=== PATIENT | female | born 1995 | race Caucasian/White ===

== ENCOUNTER 2018-10-07 11:25 | Inpatient (IN) | payer BC, OTHER ==
[2018-10-07 11:59] LABS: APPEARANCE,URINE CLEAR; BILIRUBIN,URINE NEGATIVE (NEGATIVE); COLOR,URINE STRAW; GLUCOSE, URINE NEGATIVE (NEGATIVE); KETONES,URINE NEGATIVE (NEGATIVE); LEUKOCYTE ESTERASE,URINE TRACE (NEGATIVE); NITRITE,URINE NEGATIVE (NEGATIVE); PROTEIN,URINE NEGATIVE (NEGATIVE); URINE SPECIFIC GRAVITY 1.005; UROBILINOGEN,URINE NEGATIVE mg/dL (<2.0)
[2018-10-07 12:16] LABS: URINE AMPHETAMINES SCREEN NEGATIVE; URINE BARBITURATES SCREEN NEGATIVE; URINE BENZODIAZEPINES SCREEN NEGATIVE; URINE COCAINE SCREEN NEGATIVE; URINE MARIJUANA (THC) SCREEN NEGATIVE; URINE METHADONE SCREEN NEGATIVE; URINE PHENCYCLIDINE SCREEN NEGATIVE
[2018-10-07] MEDS ORDERED: OXYTOCIN/NORMAL SALINE 20 UNIT/1,000 ML RTUINJ IV PRN (12:40)
--- NOTE | 2018-10-07 12:40 | Admission Physical ---
Datetime Report Generated by CPN: 10/07/2018 12:39 CURRENT ADMISSION Chief Complaint: Suspected Ruptured Membranes Indication for Induction: Not Applicable Admit Impression : No Active Labor; Ruptured Membranes Admit Plan: Initiate Labor Augmentation Protocol ALLERGIES Medication Allergies: No Latex: No Latex Allergies OBSTETRICAL HISTORY EDC: 10/10/2018 00:00 : 1 Para: 0 Term: 0 : 0 SAB: 0 IAB: 0 Ectopic: 0 Livin Cesareans: 0 VBACs: 0 Multiple Births: 0 Gestational Diabetes: No Rh Sensitization: No Incompetent Cervix: No ABY: No Infertility: No ART Treatment: No Uterine Anomaly: No IUGR: No Hx Previous C/S: No Macrosomia: No Hx Loss/Stillborn: No PIH: No Hx : No Placenta Previa/Abruption: No Depression/PP Depression: No PTL/PROM: No Post Hemorrhage: No Current Procedures: Ultrasound SEE RECORDS Alcohol: No Marijuana : No Cocaine: No Other Illicit Drugs: No Cigarettes: Never Smoker. [id number] MEDICAL HISTORY Diabetes: No Blood Transfusion: No Pulmonary Disease (Asthma, TB): No Breast Disease: No Hypertension: No Tire Stripper Surgery: No Heart Disease: No Hosp/Surgery: No Autoimmune Disorder: No Anesthetic Complications: No Kidney Disease: No Abnormal Pap Smear: No Neuro/Epilepsy: No Psychiatric Disorders: No Other Medical Diseases: No Hepatitis/Liver Disease: No Significant Family History: No Varicosities/Phlebitis: No Trauma/Violence : No Thyroid Dysfunction: No INFECTIOUS HISTORY Gonorrhea: No Genital Herpes: No Chlamydia: No Tuberculosis: No Syphilis: No Hepatitis: No HIV/AIDS Exposure: No Rash or Viral Illness: No HPV: No PHYSICAL EXAM General: Normal HEENT: Deferred Neurologic: Normal Thyroid: Deferred Heart: Normal Lungs: Normal Breast: Deferred Back: Deferred Abdomen: Normal Genitourinary Exam: Normal Extremities: Normal DTRs: Deferred Pelvic Type: Not Done Physical Exam Comments: Cervix per Radha KNIGHT Vital Signs: Reviewed MEMBRANES Membranes: Ruptured Amniotic Fluid Color: Clear FETUS A EGA: 39.4 Monitoring: External US FHR- Baseline: 140 Variability: Moderate 6-25bpm Decelerations: None FHR Category: Category I Presentation: Compound Admit Comment: + Actim Prom benign course PLANS FOR LABOR AND DELIVERY Labor and Delivery: None Pain Management: Epidural Feeding Preference: Breast Benefit of Breast Feed Discussed: Yes Circumcision: N/A INFORMED CONSENT Assignment: Dat Scott MD Signature: with User ID: Elis : with User ID: [email or web address]
[2018-10-07] MEDS ORDERED: LIDOCAINE 1% INJ-PF (10 MG/ML) 30 ML SDV ONE (12:56)
[2018-10-07] MEDS ORDERED: OXYTOCIN 10 UNIT/ML VIAL ONE (12:56)
[2018-10-07] MEDS ORDERED: OXYTOCIN/NORMAL SALINE 20 UNIT/1,000 ML RTUINJ ONE (12:56)
[2018-10-07] MEDS ORDERED: MISOPROSTOL 0.2 MG TABLET ONE (12:56)
[2018-10-07 13:57] LABS: ABSOLUTE EOSINOPHILS # (AUTO) 0.1 10^3/uL (0.0-0.6); ABSOLUTE LYMPHOCYTES (AUTO) 1.7 10^3/uL (0.5-4.7); ABSOLUTE NEUT (AUTO) 8.2 10^3/uL (1.7-8.2); BASOPHILS % (AUTO) 0.3 % (0-2); EOSINOPHILS % (AUTO) 0.5 % (0-6); HEMATOCRIT 37.4 % (36.0-47.0); HEMOGLOBIN 12.9 g/dL (12.0-15.5); LYMPHOCYTES % (AUTO) 15.2 % (13-45); MEAN CORPUSCULAR HGB CONC 34.6 g/dL (32.0-36.0); MEAN CORPUSCULAR VOLUME 90 fl (80-97); PLATELET COUNT 123 10^3/uL (150-450); RED BLOOD COUNT 4.17 10^6/uL (3.72-5.28); RED CELL DISTRIBUTION WIDTH 15.2 % (11.5-14.0); TOTAL CELLS COUNTED % (AUTO) 100 %
[2018-10-07] MEDS ORDERED: AMPICILLIN SOD INJ 1 GM VIAL ONE ×2 (17:26→22:02)
[2018-10-07] MEDS ORDERED: NALBUPHINE HCL INJ 10 MG/1 ML AMPULE INJ ONE (18:38)
[2018-10-07] MEDS ORDERED: NALBUPHINE HCL INJ 10 MG/1 ML AMPULE ONE (18:42)
[2018-10-07] MEDS ORDERED: BUPIVACAINE HCL 0.25 % INJ/PF (2.5 MG/1 ML) 30 ML VIAL ONE (19:47)
[2018-10-07] MEDS ORDERED: EPHEDRINE SULFATE INJ 50 MG/1 ML AMPULE ONE (19:48)
[2018-10-07] MEDS ORDERED: FENTANYL/BUPIVACAINE/NS/PF 300 MCG/150 ML RTUINJ EPI ONE (19:48)
[2018-10-07] MEDS ORDERED: AMPICILLIN SOD INJ 1 GM VIAL IV SCH (21:04)
[2018-10-07] MEDS ORDERED: AMPICILLIN SODIUM 1 GM in NORMAL SALINE 50 ML IV SCH (21:04)
[2018-10-07] MEDS ORDERED: AMPICILLIN SOD INJ 2 GM VIAL ONE (21:49)
[2018-10-08] MEDS ORDERED: PROMETHAZINE HCL INJ 25 MG/1 ML VIAL IV PRN (01:17)
[2018-10-08] MEDS ORDERED: ZOLPIDEM TARTRATE 5 MG TABLET PO PRN (01:17)
[2018-10-08] MEDS ORDERED: PSEUDOEPHEDRINE HCL 30 MG TABLET PO PRN (01:17)
[2018-10-08] MEDS ORDERED: ACETAMINOPHEN WITH CODEINE #3 TABLET PO PRN ×2 (01:17)
[2018-10-08] MEDS ORDERED: MAGNESIUM HYDROXIDE SUSP 30 ML UDCUP PO PRN (01:17)
[2018-10-08] MEDS ORDERED: ACETAMINOPHEN 650 MG SUPP.RECT PR PRN (01:17)
[2018-10-08] MEDS ORDERED: GLYCERIN/WITCH HAZEL LEAF 1 EACH MED..PAD TP PRN (01:17)
[2018-10-08] MEDS ORDERED: PROMETHAZINE HCL 25 MG TABLET PO PRN (01:17)
[2018-10-08] MEDS ORDERED: PROMETHAZINE HCL 25 MG SUPP.RECT PR PRN (01:17)
[2018-10-08] MEDS ORDERED: DIPHENHYDRAMINE HCL 25 MG CAPSULE PO PRN (01:17)
[2018-10-08] MEDS ORDERED: DIBUCAINE 1% OINTMENT 28 GM TP PRN (01:17)
[2018-10-08] MEDS ORDERED: MEASLES,MUMPS&RUBELLA VACC/PF 0.5 ML VIAL SUBCUT PRN (01:17)
[2018-10-08] MEDS ORDERED: DIPH/PERTUSS(ACELL)/TETANUS VAC/PF 0.5 ML SYR (>=10YO) IM PRN (01:17)
[2018-10-08] MEDS ORDERED: BENZOCAINE/MENTHOL AEROSOL SPRAY 56 ML TOP PRN (01:17)
[2018-10-08] MEDS ORDERED: OXYTOCIN/NORMAL SALINE 20 UNIT/1,000 ML RTUINJ IV PRN (01:17)
[2018-10-08] MEDS ORDERED: NA PHOS,M-B/NA PHOS,DI-BA (ADULT) 133 ML ENEMA PR PRN (01:17)
[2018-10-08] MEDS ORDERED: IBUPROFEN 800 MG TABLET ONE ×2 (01:24→01:37)
[2018-10-08] MEDS ORDERED: OXYTOCIN/NORMAL SALINE 20 UNIT/1,000 ML RTUINJ ONE (01:37)
[2018-10-08] MEDS ORDERED: AMPICILLIN SOD INJ 1 GM VIAL IV SCH (02:00)
--- NOTE | 2018-10-08 02:38 | Delivery Summary ---
Del Sum A-C Datetime Report Generated by CPN: 10/08/2018 02:38 DELIVERY PERSONNEL DELIVERY PERSONNEL: [id number] Delivery Doctor:: Dat Scott MD Labor and Delivery Nurse:: Francie Grewal RN Labor and Delivery Nurse:: Tiffany Oliver RN Muffler Installer/LITHOGRAPH DESIGNER: Stella Ross, ST MATERNAL INFORMATION Delivery Anesthesia: Epidural Medications After Delivery: Pitocin Drip 20 Units/1000ml NSS Maternal Complications: Premature Rupture of Membranes LABOR SUMMARY EDC: 10/10/2018 00:00 No. Babies in Womb: 1 Attempted: No Labor Anesthesia: Epidural LABOR INFORMATION Reason for Induction: Not Applicable Onset of Labor: 10/07/2018 02:00 Complete Dilatation: 10/07/2018 23:34 Oxytocin: Augmentation Group B Beta Strep: negative Antibiotics # of Doses: 0 Steroids Given: None Reason Steroids Not Administered: Not Applicable MEMBRANES Membranes Rupture Method: Spontaneous Rupture of Membranes: 10/07/2018 02:00 Length of Rupture (hr): 23.13 Amniotic Fluid Color: Clear Amniotic Fluid Amount: Small Amniotic Fluid Odor: Normal STAGES OF LABOR Stage 1 hr: 21 Stage 1 min: 34 Stage 2 hr: 1 Stage 2 min: 34 Stage 3 hr: 0 Stage 3 min: 4 Total Time in Labor hr: 23 Total Time in Labor min: 12 VAGINAL DELIVERY Episiotomy: None Laceration #1: Vaginal Laceration Extension #1: N/A Laceration #2: None Laceration Extension #2: N/A Laceration #3: None Laceration Extension #3: N/A Laceration Repair: Yes Laceration Repair Note: One 3-0 chromic placed to close small labial tear Sponge Count Correct: N/A; Vaginal Sweep Performed Sharps Count Correct: N/A CSECTION DELIVERY Primary Indication: N/A Secondary Indication: N/A CSection Incidence: N/A Labor: N/A Elective: N/A CSection Incision: N/A BABY A INFORMATION Delivery Date/Time: 10/08/2018 01:08 Method of Delivery: Vaginal Born in Route : No : N/A Forceps: N/A Vacuum Extraction: N/A Shoulder Dystocia : No PRESENTATION/POSITION BABY A Presentation: Cephalic Cephalic Presentation: Vertex Vertex Position: Left Occipital Anterior Breech Presentation: N/A PLACENTA INFORMATION BABY A Placenta Delivery Time : 10/08/2018 01:12 Placenta Method of Delivery: Spontaneous Placenta Status: Delivered SCORES BABY A Heart Rate 1 min: >100 bpm Resp Effort 1 min: Good Cry Reflex Irritability 1 min: Cough or Sneeze or Pulls Away Muscle Tone 1 min: Active Motion Color 1 min: Body [place], Extremities Blue SCORE 1 MIN: 9 Heart Rate 5 min: >100 bpm Resp Effort 5 min: Good Cry Reflex Irritability 5 min: Cough or Sneeze or Pulls Away Muscle Tone 5 min: Active Motion Color 5 min: Body [place], Extremities Blue SCORE 5 MIN: 9 INFANT INFORMATION BABY A Gestational Age at Delivery: 39.5 Gestational Status: Full Term- 39- 40.6 Weeks Infant Outcome : Liveborn Infant Condition : Stable Sex: Female IDENTIFICATION BABY A Infant Verification Date/Time: 10/08/2018 01:25 ID Band Number: [id number] Mother's Name Verified: Yes RN Verifying Infant: La Gonzales, RNC _ C. Carmina, RN CORD INFORMATION BABY A No. Cord Vessels: 3 Nuchal Cord : N/A Cord Blood Taken: Yes-For Eval (Mom's Blood Type - or O+) Suction: None ASSESSMENT BABY A Infant Complications: None Physical Findings at Delivery: Within Normal Limits Respirations: Appears Normal Skin to Skin: Yes Transferred To: Remains with Mother BABY B INFORMATION : N/A SIGNATURES Signature: with User ID: Tatiana : Yenni was personally available for consultation and serving as supervising physician for the MLP.
--- NOTE | 2018-10-08 02:43 | Warning Signs in Babies ---
VOD Warning Signs Datetime Report Generated by [facility]: 10/08/2018 02:43 VOD#608 -Warning Signs in Babies: Needs to be viewed. (10/07/2018 11:59:Francie Grewal RN)
[2018-10-08] MEDS: IBUPROFEN 800 MG TABLET PO SCH ×2 (05:33→21:54)
[2018-10-08] MEDS: SENNOSIDES/DOCUSATE 8.6-50 MG 1 EACH TABLET PO SCH (10:58)
[2018-10-08] MEDS: FAMOTIDINE 20 MG TABLET PO SCH ×2 (10:58→21:54)
[2018-10-08] MEDS: FERROUS SULFATE 325 MG TABLET PO SCH ×2 (10:58→17:58)
[2018-10-08] MEDS: DOCUSATE SODIUM 100 MG CAPSULE PO SCH ×2 (10:58→17:58)
[2018-10-08] MEDS: PRENATAL VITAMIN W DHA CAPSULE PO SCH (10:58)
--- NOTE | 2018-10-08 11:17 | PDOC PROGRESS REPORT ---
Subjective-OB Progress Note for:: 10/08/18 Subjective: Holding baby, no c/o Physical Exam (OB) Vital Signs: Intake & Output 10/07/18 10/08/18 10/09/18 06:59 06:59 06:59 Weight 89.9 kg - PIH/Pre-Eclampsia Clonus: Negative Headache: Absent Epigastric Pain: No Visual Changes: No - Lochia Lochia Amount: Small 10-25 ml Lochia Color: Rubra/Red - Abdomen Description: Soft, Round Fundal Description: Firm Fundal Height: u/u - u/2 Objective-Diagnostic Laboratory: 10/07/18 13:31 10/07/18 10/07/18 10/07/18 11:36 13:31 13:31 WBC 11.0 H RBC 4.17 Hgb 12.9 Hct 37.4 MCV 90 MCH 31.0 MCHC 34.6 RDW 15.2 H Plt Count 123 L Seg Neutrophils % 75.0 Lymphocytes % 15.2 Monocytes % 9.0 Eosinophils % 0.5 Basophils % 0.3 Absolute Neutrophils 8.2 Absolute Lymphocytes 1.7 Absolute Monocytes 1.0 Absolute Eosinophils 0.1 Absolute Basophils 0.0 Urine Color STRAW Urine Appearance CLEAR Urine pH 7.0 Ur Specific [place] 1.005 Urine Protein NEGATIVE Urine Glucose (UA) NEGATIVE Urine Ketones NEGATIVE Urine Blood NEGATIVE Urine Nitrite NEGATIVE Ur Leukocyte Esterase TRACE H Blood Type O POSITIVE Antibody Screen NEGATIVE Assessment and Plan(PN) - Assessment and Plan (1) Delivery normal Is this a current diagnosis for this admission?: Yes - Time Spent with Patient Time with patient: Less than 15 minutes Medications reviewed and adjusted accordingly: Yes - Disposition Anticipated Discharge: Home Within: within 24 hours
[2018-10-08 20:11] VITALS: BP 109/70
[2018-10-09] MEDS: IBUPROFEN 800 MG TABLET PO SCH ×3 (05:48→13:49)
[2018-10-09 09:05] LABS: HEMATOCRIT 32.9 % (36.0-47.0); MEAN CORPUSCULAR HEMOGLOBIN 30.4 pg (27.0-33.4); MEAN CORPUSCULAR HGB CONC 33.3 g/dL (32.0-36.0); MEAN CORPUSCULAR VOLUME 91 fl (80-97); PLATELET COUNT 153 10^3/uL (150-450); RED BLOOD COUNT 3.61 10^6/uL (3.72-5.28); RED CELL DISTRIBUTION WIDTH 15.5 % (11.5-14.0); WHITE BLOOD COUNT 11.3 10^3/uL (4.0-10.5)
--- NOTE | 2018-10-09 09:54 | PDOC PROGRESS REPORT ---
Subjective-OB Progress Note for:: 10/09/18 Subjective: Doing well, no c/o, would like to go home if baby can go Physical Exam (OB) Vital Signs: Temp Pulse Resp BP Pulse Ox 98.0 F 82 18 109/70 100 10/08/18 20:02 10/08/18 20:02 10/08/18 20:02 10/08/18 20:02 10/08/18 20:02 Intake & Output 10/08/18 10/09/18 10/10/18 06:59 06:59 06:59 Intake Total 550 Balance 550 Weight 89.9 kg - PIH/Pre-Eclampsia DTR's: 2 + Clonus: Negative Headache: Absent Epigastric Pain: No Visual Changes: No - Lochia Lochia Amount: Scant < 10 ml Lochia Color: Rubra/Red - Abdomen Description: Tender, Soft Hernia Present: No Fundal Description: Firm, Midline Fundal Height: u/3 - u/4 Objective-Diagnostic Laboratory: 10/09/18 08:02 10/09/18 08:02 WBC 11.3 H RBC 3.61 L Hgb 11.0 L Hct 32.9 L MCV 91 MCH 30.4 MCHC 33.3 RDW 15.5 H Plt Count 153 Assessment and Plan(PN) - Assessment and Plan (1) Delivery normal Is this a current diagnosis for this admission?: Yes - Time Spent with Patient Time with patient: Less than 15 minutes Medications reviewed and adjusted accordingly: Yes - Disposition Anticipated Discharge: Home Within: within 24 hours
[2018-10-09] MEDS: DOCUSATE SODIUM 100 MG CAPSULE PO SCH (09:58)
[2018-10-09] MEDS: SENNOSIDES/DOCUSATE 8.6-50 MG 1 EACH TABLET PO SCH (09:58)
[2018-10-09] MEDS: FAMOTIDINE 20 MG TABLET PO SCH (09:58)
[2018-10-09] MEDS: PRENATAL VITAMIN W DHA CAPSULE PO SCH (09:58)
[2018-10-09] MEDS: FERROUS SULFATE 325 MG TABLET PO SCH (09:59)
--- NOTE | 2018-10-09 10:01 | PDOC DISCHARGE SUMMARY ---
Final Diagnosis Discharge Date: 10/09/18 Discharge Data - Discharge Medication Home Medications: Pnv No.95/Ferrous Fum/Folic AC [ Multivitamin Tablet] 1 each PO DAILY Gestational Age: 39.4 Reason(s) for Admission: PROM Admission Note: augmentation with Pitocin Procedures: NST, Ultrasound Intrapartum Procedure(s): Spontaneous Vaginal Delivery Complication(s): Laceration-Vaginal, Laceration-Labial Laceration-Degree: 1st - Diagnosis Test Laboratory: Temp Pulse Resp BP Pulse Ox 98.0 F 82 18 109/70 100 10/08/18 20:02 10/08/18 20:02 10/08/18 20:02 10/08/18 20:02 10/08/18 20:02 10/07/18 10/07/18 10/09/18 11:36 13:31 08:02 RBC 4.17 3.61 L Hgb 12.9 11.0 L Hct 37.4 32.9 L Urine Opiates Screen NEGATIVE - Discharge information/Instructions Discharge Activity: Activity As Tolerated, No Lifting Over 10 Pounds, No Lifting /Push/Pulling, Pelvic Rest Discharge Diet: As Tolerated, Regular Disposition: HOME, SELF-CARE Follow up with: [facility] in: 4, Weeks
== END 2018-10-09 15:02 | disposition home or self-care (01) | DRG 807 ==
LOC: LC 11:25 → LR 12:59 → 2S 10-08 03:21
PROVIDERS: ADMIT Obstetrics & Gynecology; ATTEND Obstetrics & Gynecology
PROC: 10E0XZZ Delivery of Products of Conception, External Approach (ICD-10-PCS; principal; 2018-10-08)
PROC: 0HQ9XZZ Repair Perineum Skin, External Approach (ICD-10-PCS; 2018-10-08)
DX: O70.0 First degree perineal laceration during delivery (principal); Z37.0 Single live birth; Z3A.39 39 weeks gestation of pregnancy
CPT/HCPCS: 36415; 80307; 81005; 84112; 85025; 85027; 86592; 86850; 86900; 86901; 94760; J0290; J2300; J2590; J3010; J3490

== ENCOUNTER 2018-12-24 07:35 | Emergency (ER) | payer BC, OTHER ==
--- NOTE | 2018-12-24 08:24 | ER Document Report ---
Addendum entered and electronically signed by AELSSANDRA CARRINGTON FNP 12/24/18 12:06: Discharge - Discharge Clinical Impression: Abdominal pain Qualifiers: Abdominal location: lower abdomen, unspecified Qualified Code(s): R10.30 - Lower abdominal pain, unspecified Condition: Stable Disposition: HOME, SELF-CARE Additional Instructions: You were seen today in the emergency department for abdominal pain. You have pelvic inflammatory disease based off your exam. He will be started on doxycycline, an antibiotic. Please finish all your medication as prescribed. If you develop pain again, you can take 1000 mg of Tylenol and 600 mg of ibuprofen as needed for your pain. If you continue to have symptoms within the next 3-4 days, develop a fever greater than 100.4 F while on Motrin Tylenol, have worsening symptoms, or have any symptoms that are worrisome to you, please return to the emergency department. Prescriptions: Doxycycline Hyclate 100 mg PO BID #28 capsule Metronidazole [Flagyl 500 mg Tablet] 500 mg PO Q6H #28 tablet Referrals: ABRIL BAUM MD [ACTIVE STAFF] - Follow up as needed Addendum entered and electronically signed by ALESSANDRA CARRINGTON FNP 12/24/18 12:01: Course - Re-evaluation Re-evalutation: JALEN Dan was at bedside during pelvic exam. - Vital Signs Vital signs: Temp Pulse Resp BP Pulse Ox 97.9 F 78 16 103/58 L 100 12/24/18 11:03 12/24/18 11:03 12/24/18 11:03 12/24/18 11:03 12/24/18 11:03 - Laboratory Result Diagrams: 12/24/18 08:12 12/24/18 08:12 Laboratory results interpreted by me: 12/24/18 12/24/18 12/24/18 08:05 08:12 08:12 WBC 11.9 H Hct 35.4 L RDW 14.2 H Seg Neutrophils % 81.5 H Absolute Neutrophils 9.7 H Potassium 3.5 L Urine Blood MODERATE H Ur Leukocyte Esterase SMALL H Original Note: ED General - General Chief Complaint: Abdominal Pain Stated Complaint: STOMACH PAINS Time Seen by Provider: 12/24/18 07:55 Primary Care Provider: ABRIL BAUM MD [ACTIVE STAFF] - Follow up as needed Notes: Patient is a 23-year-old female who presents the emergency department with a chief complaint of lower abdominal pain. Her pain is mainly in her pelvic area on the right side and midline in her lower pelvic area. It started this morning. She states that it is a sharp pain that hurts when she presses it. She is able to walk normal. She took some Tylenol at home and had some improvement in her pain. She does admit to having some vaginal discharge. She had an IUD placed about 3 weeks ago and has had pain in the area that has progressively gotten worse. TRAVEL OUTSIDE OF THE [place] IN LAST 30 DAYS: No - Related Data Allergies/Adverse Reactions: No Known Allergies Allergy (Verified 10/07/18 14:00) Past Medical History - Social History Smoking Status: Never Smoker Chew tobacco use (# tins/day): No Frequency of alcohol use: None Drug Abuse: None Family History: Reviewed & Not Pertinent Patient has suicidal ideation: No Patient has homicidal ideation: No Renal/ Medical History: Denies: Hx Peritoneal Dialysis Review of Systems - Review of Systems Notes: REVIEW OF SYSTEMS: CONSTITUTIONAL : Denies recent illness. Denies recent unintentional weight loss. Denies fever, chills, or sweats. EENT: Denies eye, ear, throat, or mouth pain, discharge, or symptoms. Denies nasal or sinus congestion. CARDIOVASCULAR: Denies chest pain. RESPIRATORY: Denies shortness of breath, cough, congestion, difficulty breathing, or wheezing. GASTROINTESTINAL: See HPI last BM: Today GENITOURINARY: Denies difficulty urinating, burning, blood in urine, urgency or frequency. FEMALE GENITOURINARY: See HPI. LMP: Last week MUSCULOSKELETAL: Denies neck and back pain. Denies joint pain or swelling. SKIN: Denies rash, itchiness, or lesions HEMATOLOGIC : Denies easy bruising or bleeding. LYMPHATIC: Denies swollen, painful, enlarged glands. NEUROLOGICAL: Denies no numbness or tingling denies weakness. Denies headache. Denies altered mental status. Denies alteration in speech. PSYCHIATRIC: Denies stress, anxiety, alteration in sleep patterns, or depression. All other systems reviewed and negative. Physical Exam - Vital signs Vitals: Temp Pulse Resp BP Pulse Ox 97.7 F 64 16 95/52 L 100 12/24/18 07:39 12/24/18 07:39 12/24/18 07:39 12/24/18 07:39 12/24/18 07:39 - Notes Notes: PHYSICAL EXAMINATION: GENERAL: Appears well, healthy, well-nourished, no acute distress. HEAD: Normocephalic, atraumatic. EYES: PERRL, conjunctiva normal, all extraocular movements intact, sclera nonicteric ENT: Moist mucous membranes. NECK: Supple, no noticeable swelling, redness, rash. Normal range of motion. LUNGS: Equal breath sounds bilaterally and clear to auscultation. No wheezes rales or rhonchi. CARDIOVASCULAR: S1-S2, regular rate, regular rhythm. Radial pulses 2+, normal. ABDOMEN: Normoactive bowel sounds. Soft, nontender, no guarding, no rebound tenderness, and no masses palpated. EXTREMITIES: Normal strength and range of motion, no pitting or edema. No cyanosis. NEUROLOGICAL: Moves all extremities upon command. Strength 5/5 in all extr emities. PSYCH: Normal mood, normal affect. SKIN: Warm, dry. No rash, lesions, ulcerations noted. Normal skin turgor. EXECUTIVE TALENT ACQUISITION CONSULTANT: Yellowish discharge noted near cervix and vagina. Course - Re-evaluation Re-evalutation: 12/24/18 09:48 The patient's wet mount did not have any bacteria on it, but it was told by the lab that the specimen was too dilute. A new wet mount will be sent. 12/24/18 11:21 The second wet mount was negative for any bacteria. Although the wet mount was negative, I suspect the patient has PID and she will be sent home with doxycycline. I discussed this case with Dr. Novoa, who agrees that the patient can be sent home with doxycycline since she does have PID on exam. I have offered to empirically treat her for gonorrhea and chlamydia and she declined to be treated. I reassessed her abdomen and I have a very low suspicion for appendicitis. She is able to jump up for me with very minimal pain. 12/24/18 11:[address] Page, the SYSTEM SALES CONSULTANT on-call and look at the patient's ultrasound. She will call me back if she finds any concerning findings. She would also like the patient to be treated with Rocephin. Verbal discharge instructions were given to the patient. They verbalized understanding. They are stable for discharge. - Vital Signs Vital signs: Temp Pulse Resp BP Pulse Ox 97.9 F 78 16 103/58 L 100 12/24/18 11:03 12/24/18 11:03 12/24/18 11:03 12/24/18 11:03 12/24/18 11:03 - Laboratory Result Diagrams: 12/24/18 08:12 12/24/18 08:12 Laboratory results interpreted by me: 12/24/18 12/24/18 12/24/18 08:05 08:12 08:12 WBC 11.9 H Hct 35.4 L RDW 14.2 H Seg Neutrophils % 81.5 H Absolute Neutrophils 9.7 H Potassium 3.5 L Urine Blood MODERATE H Ur Leukocyte Esterase SMALL H Discharge - Discharge Clinical Impression: Abdominal pain Qualifiers: Abdominal location: lower abdomen, unspecified Qualified Code(s): R10.30 - Lower abdominal pain, unspecified Condition: Stable Disposition: HOME, SELF-CARE Additional Instructions: You were seen today in the emergency department for abdominal pain. You have pelvic inflammatory disease based off your exam. He will be started on doxycycline, an antibiotic. Please finish all your medication as prescribed. If you develop pain again, you can take 1000 mg of Tylenol and 600 mg of ibuprofen as needed for your pain. If you continue to have symptoms within the next 3-4 days, develop a fever greater than 100.4 F while on Motrin Tylenol, have worsening symptoms, or have any symptoms that are worrisome to you, please return to the emergency department. Prescriptions: Doxycycline Hyclate 100 mg PO BID #28 capsule Referrals: ABRIL BAMU MD [ACTIVE STAFF] - Follow up as needed
[2018-12-24 08:48] LABS: ABSOLUTE EOSINOPHILS # (AUTO) 0.1 10^3/uL (0.0-0.6); ABSOLUTE LYMPHOCYTES (AUTO) 1.6 10^3/uL (0.5-4.7); ABSOLUTE MONOCYTES (AUTO) 0.5 10^3/uL (0.1-1.4); ABSOLUTE NEUT (AUTO) 9.7 10^3/uL (1.7-8.2); BASOPHILS % (AUTO) 0.3 % (0-2); HEMATOCRIT 35.4 % (36.0-47.0); HEMOGLOBIN 12.1 g/dL (12.0-15.5); LYMPHOCYTES % (AUTO) 13.1 % (13-45); MEAN CORPUSCULAR HEMOGLOBIN 30.4 pg (27.0-33.4); MEAN CORPUSCULAR HGB CONC 34.2 g/dL (32.0-36.0); MEAN CORPUSCULAR VOLUME 89 fl (80-97); MONOCYTES % (AUTO) 4.1 % (3-13); PLATELET COUNT 250 10^3/uL (150-450); RED BLOOD COUNT 3.98 10^6/uL (3.72-5.28); RED CELL DISTRIBUTION WIDTH 14.2 % (11.5-14.0); SEGMENTED NEUTROPHILS % (AUTO) 81.5 % (42-78); TOTAL CELLS COUNTED % (AUTO) 100 %; WHITE BLOOD COUNT 11.9 10^3/uL (4.0-10.5)
--- NOTE | 2018-12-24 08:54 | RADIOLOGY REPORT (SQ) ---
EXAM DESCRIPTION: U/S ABDOMEN LTD W/DOPPLER COMPLETED DATE/TIME: 12/24/2018 8:43 am REASON FOR STUDY: RLQ abd pain COMPARISON: None. TECHNIQUE: Dynamic and static grayscale images acquired of the right lower quadrant and recorded on PACS. Additional selected color Doppler and spectral images recorded. LIMITATIONS: None. FINDINGS: The appendix is nonvisualized. No evidence of fluid. Peristaltic bowel is identified thr oughout. IMPRESSION: The appendix is nonvisualized in the right lower quadrant. No secondary evidence of inf lammation such as free fluid. Please note that ultrasound is very limited for the evaluation of appe ndicitis in adults. Consider CT to further evaluate if there is clinical suspicion for acute appendi citis. TECHNICAL DOCUMENTATION: JOB ID: [id number] [employer]- All Rights Reserved Reading location - IP/workstation name: [email or web address]
[2018-12-24 08:57] LABS: ALANINE AMINOTRANSFERASE 26 U/L (9-52); ALBUMIN 4.1 g/dL (3.5-5.0); ALKALINE PHOSPHATASE 66 U/L (38-126); ANION GAP 8 (5-19); ASPARTATE AMINO TRANSFERASE 22 U/L (14-36); BILIRUBIN,DIRECT 0.1 mg/dL (0.0-0.4); BILIRUBIN,TOTAL 0.3 mg/dL (0.2-1.3); BLOOD UREA NITROGEN 13 mg/dL (7-20); CALCIUM 9.7 mg/dL (8.4-10.2); CARBON DIOXIDE 26 mmol/L (22-30); CHLORIDE 107 mmol/L (98-107); GLUCOSE 92 mg/dL (75-110); POTASSIUM 3.5 mmol/L (3.6-5.0); SODIUM 141.3 mmol/L (137-145); TOTAL PROTEIN 6.4 g/dL (6.3-8.2)
[2018-12-24 08:59] LABS: T.VAGINALIS (WET MOUNT) NO TRICHOMONAS SEEN; WBCS (WET MOUNT) FEW WBCS SEEN; YEAST (WET MOUNT) NO YEAST SEEN
--- NOTE | 2018-12-24 08:59 | RADIOLOGY REPORT (SQ) ---
EXAM DESCRIPTION: U/S NON OB PEL TV W/DOPPLER COMPLETED DATE/TIME: 12/24/2018 8:43 am REASON FOR STUDY: vaginal discharge COMPARISON: None. TECHNIQUE: Dynamic and static grayscale images acquired of the pelvis via transvaginal approach and recorded on PACS. Additional selected color Doppler and spectral images recorded. LIMITATIONS: None. FINDINGS: UTERUS: Contour normal. No mass. ENDOMETRIAL STRIPE: IUD is visualized. CERVIX: The cervix measures 2.7 cm. No nabothian cysts. RIGHT OVARY AND DOPPLER: Normal size. No worrisome masses. Normal arterial vascular flow without evid ence for torsion. Small amount of fluid in the right adnexa, maybe on a physiologic basis. LEFT OVARY AND DOPPLER: Normal size. No worrisome masses. Normal arterial vascular flow without evide nce for torsion. FREE FLUID: Small amount of free fluid in the posterior cul-de-sac, may be on a physiologic basis. OTHER: No other significant finding. MEASUREMENTS: UTERUS: 8.9 x 4.5 x 6.5 cm ENDOMETRIAL STRIPE: 3.0 mm RIGHT OVARY: 3.1 x 2.1 x 3.7 cm LEFT OVARY: 4.1 x 4.2 x 2.9 cm IMPRESSION: 1. IUD is visualized within the endometrial cavity. 2. Small amount of free fluid in the right adnexa and cul-de-sac, may be on a physiologic basis. Co rrelation suggested. TECHNICAL DOCUMENTATION: JOB ID: [id number] [email or web address]- All Rights Reserved Rev-03/19 Reading location - IP/workstation name: [email or web address]
[2018-12-24 10:05] LABS: T.VAGINALIS (WET MOUNT) NO TRICHOMONAS SEEN; WBCS (WET MOUNT) RARE WBCS SEEN; YEAST (WET MOUNT) NO YEAST SEEN
[2018-12-24 10:06] LABS: EPITHELIALS (WET MOUNT) 4+ EPITHELIALS SEEN; RBCS (WET MOUNT) NO RBCS SEEN
[2018-12-24 10:29] LABS: APPEARANCE,URINE TURBID; BILIRUBIN,URINE NEGATIVE (NEGATIVE); COLOR,URINE YELLOW; GLUCOSE, URINE NEGATIVE (NEGATIVE); KETONES,URINE NEGATIVE (NEGATIVE); LEUKOCYTE ESTERASE,URINE SMALL (NEGATIVE); NITRITE,URINE NEGATIVE (NEGATIVE); PROTEIN,URINE NEGATIVE (NEGATIVE); URINE SPECIFIC GRAVITY 1.028; UROBILINOGEN,URINE NEGATIVE mg/dL (<2.0)
[2018-12-24] MEDS ORDERED: ONDANSETRON ODT 4 MG TAB (6 TAB/ER DISP) PO PRN (11:24)
[2018-12-24] MEDS ORDERED: MORPHINE SULFATE 10 MG/ML INJ IV ONE (11:24)
[2018-12-24] MEDS ORDERED: KETOROLAC TROMETHAMINE INJ/PF 30 MG/1 ML SDV IV ONE (11:27)
[2018-12-24] MEDS ORDERED: CEFTRIAXONE INJ 250 MG VIAL IM ONE (11:39)
[2018-12-24] MEDS ORDERED: LIDOCAINE 1% INJ-PF (10 MG/ML) 30 ML SDV IM ONE (11:41)
[2018-12-24 12:06] VITALS: BP 112/59
[2018-12-24 12:13] LABS: CHLAM PCR NOT DETECTED (NOT DETECT); GON PCR NOT DETECTED (NOT DETECT)
== END 2018-12-24 12:06 | disposition home or self-care (01) ==
LOC: ER 07:35
DX: R10.30 Lower abdominal pain, unspecified (principal); Z97.5 Presence of (intrauterine) contraceptive device
CPT/HCPCS: 99284; 96372; 96374; 36415; 87210; 85025; 81025; 80053; 81001; 87491; 87591; 76705; 76830; 93976; J3490; J1885; J0696